=== PATIENT | female | born 1965 | race Hispanic/Latino ===

== ENCOUNTER 2021-11-19 21:41 | Emergency (ER) | payer BC ==
[~2021-11-19] VITALS: Ht 157.5 cm; Wt 95.3 kg
[2021-11-19] MEDS ORDERED: AZITHROMYCIN 250 MG TAB PO STA (21:57)
[2021-11-19] MEDS ORDERED: DEXAMETHASONE SOD PHOS 10 MG/1 ML VIAL IM STA (21:57)
[2021-11-19] MEDS ORDERED: ACETAMINOPHEN 325 MG TAB PO STA (21:58)
[2021-11-19] MEDS ORDERED: ACETAMINOPHEN 325 MG TAB ONE (22:16)
[2021-11-19] MEDS ORDERED: DEXAMETHASONE SOD PHOS 10 MG/1 ML VIAL ONE (22:21)
[2021-11-19] MEDS ORDERED: AZITHROMYCIN 250 MG TAB ONE (22:21)
[2021-11-19] MEDS ORDERED: VENTOLIN HFA18 GM INH (22:31)
[2021-11-19 22:45] VITALS: BP 113/68
== END 2021-11-19 22:43 | disposition home or self-care (01) ==
LOC: ER 22:02
DX: U07.1 COVID-19 (principal); J06.9 Acute upper respiratory infection, unspecified; R50.9 Fever, unspecified; R06.00 Dyspnea, unspecified
CPT/HCPCS: 71045; 99283; J1100

== ENCOUNTER 2021-11-21 10:42 | Inpatient (IN) | payer BC ==
[~2021-11-21] VITALS: Ht 157.5 cm; Wt 91.6 kg
[~2021-11-21 10:42] MED LIST: VENTOLIN HFA18 GM INH
[2021-11-21 11:02] LABS: BASOPHILS % 0.1 % (0.0-1.0); HEMATOCRIT 38.3 % (34.2-44.1); HEMOGLOBIN 12.2 g/dL (12.0-16.0); LYMPHOCYTES # (AUTO) 1.3 (1.0-3.2); LYMPHOCYTES % 11.8 % (18.0-39.1); MEAN CORPUSCULAR HGB CONC 31.9 g/dL (31-35); MEAN CORPUSCULAR VOLUME 87.8 fL (81-99); MONOCYTES # (AUTO) 0.6 (0.2-0.8); MONOCYTES % 5.4 % (4.4-11.3); NEUTROPHILS % 82.5 % (38.7-80.0); PLATELET COUNT 385 x10e3/uL (140-360); RED BLOOD COUNT 4.36 x10e6/uL (3.6-5.1)
[2021-11-21 11:13] LABS: INR 0.98; PROTHROMBIN TIME 13.8 seconds (11.9-14.5)
[2021-11-21 11:14] LABS: PARTIAL THROMBOPLASTIN TIME 24.9 seconds (23.8-35.5)
[2021-11-21 11:22] LABS: ALANINE AMINOTRANSFERASE 24 IU/L (0-55); ALBUMIN 3.3 g/dL (3.5-5.0); ALBUMIN/GLOBULIN RATIO 0.7 (0.8-2.0); ALKALINE PHOSPHATASE 51 IU/L (40-150); ANION GAP 15.8 mmol/L (8-16); BLOOD UREA NITROGEN 28 mg/dL (7-26); BUN/CREATININE RATIO 35 (6-25); CARBON DIOXIDE 22 mmol/L (22-29); CHLORIDE 105 mmol/L (98-107); CREATINE KINASE 58 IU/L (29-168); EST GLOMERULAR FILTRATION RATE 74 ML/MIN (60-); GLUCOSE 113 mg/dL (74-118); POTASSIUM 3.8 mmol/L (3.5-5.1); SODIUM 139 mmol/L (136-145)
[2021-11-21] MEDS ORDERED: ONDANSETRON HCL INJ 2MG/ML 2ML 2 MG/ML VIAL IV PRN (12:45)
[2021-11-21] MEDS ORDERED: ACETAMINOPHEN 325 MG TAB PO PRN (12:45)
[2021-11-21] MEDS: CEFTRIAXONE 1 GM in SODIUM CHLORIDE 0.9% 50ML 50 ML IV SCH (13:13)
[2021-11-21] MEDS ORDERED: ALBUTEROL SULFATE HFA 8GM INHALATION AEROSOL INH PRN (14:30)
[2021-11-21] MEDS ORDERED: ZOLPIDEM TARTRATE 5 MG TAB PO PRN (14:30)
[2021-11-21] MEDS ORDERED: REMDESIVIR 100MG 200 MG in SODIUM CHLORIDE 0.9% 100 ML IV ONE (17:00)
[2021-11-21] MEDS ORDERED: REMDESIVIR 100MG 100 MG IV ONE ×2 (17:10→17:11)
[2021-11-21] MEDS ORDERED: SODIUM CHLORIDE 0.9% 100 ML ONE (17:12)
[2021-11-21] MEDS: ENOXAPARIN SOD INJ 40 MG/0.4 ML SYR SC SCH (17:15)
[2021-11-21] MEDS: ASCORBIC ACID 500 MG TAB PO SCH (17:15)
[2021-11-21 20:00] VITALS: BP 97/58
[2021-11-21 20:23] LABS: CREATINE KINASE 34 IU/L (29-168)
[2021-11-21 21:00] VITALS: BP 97/58
[2021-11-21] MEDS ORDERED: SODIUM CHLORIDE 0.9% 250ML 250 ML ONE (22:11)
[2021-11-21 22:31] VITALS: BP 97/58
[2021-11-22] VITALS: BP 94/54
[2021-11-22] MEDS: CEFTRIAXONE 1 GM in SODIUM CHLORIDE 0.9% 50ML 50 ML IV SCH ×2 (00:21→11:55)
[2021-11-22 04:00] VITALS: BP 91/57
[2021-11-22 05:00] LABS: BASOPHILS % 0.2 % (0.0-1.0); EOSINOPHILS % 0.4 % (0.0-6.0); HEMATOCRIT 35.2 % (34.2-44.1); LYMPHOCYTES # (AUTO) 2.5 (1.0-3.2); LYMPHOCYTES % 26.8 % (18.0-39.1); MEAN CORPUSCULAR HEMOGLOBIN 28.1 pg (28-32); MEAN CORPUSCULAR HGB CONC 31.3 g/dL (31-35); MEAN CORPUSCULAR VOLUME 89.8 fL (81-99); MONOCYTES # (AUTO) 0.9 (0.2-0.8); MONOCYTES % 9.5 % (4.4-11.3); NEUTROPHILS # (AUTO) 5.8 (2.1-6.9); NEUTROPHILS % 62.9 % (38.7-80.0); PLATELET COUNT 367 x10e3/uL (140-360); RED BLOOD COUNT 3.92 x10e6/uL (3.6-5.1); RED CELL DISTRIBUTION WIDTH 15.3 % (11.7-14.4)
[2021-11-22 05:46] LABS: ALBUMIN 2.8 g/dL (3.5-5.0); ALBUMIN/GLOBULIN RATIO 0.7 (0.8-2.0); ANION GAP 15.2 mmol/L (8-16); CALCIUM 9.1 mg/dL (8.4-10.2); CHOL/HDL RATIO 3.2 (3.0-3.6); CREATININE, SERUM 0.84 mg/dL (0.57-1.11); POTASSIUM 4.2 mmol/L (3.5-5.1)
[2021-11-22 06:17] LABS: CREATINE KINASE 27 IU/L (29-168)
[2021-11-22 08:04] VITALS: BP 96/62
[2021-11-22] MEDS: DEXAMETHASONE SOD PHOS 10 MG/1 ML VIAL IV SCH (08:14)
[2021-11-22] MEDS: ZINC SULFATE 50 MG CAP PO SCH (08:15)
[2021-11-22] MEDS: ASCORBIC ACID 500 MG TAB PO SCH ×2 (08:15→16:09)
[2021-11-22] MEDS ORDERED: SODIUM CHLORIDE 0.9% 100 ML ONE (09:51)
[2021-11-22] MEDS: REMDESIVIR 100MG 100 MG in SODIUM CHLORIDE 0.9% 100 ML IV SCH (14:23)
[2021-11-22] MEDS: ENOXAPARIN SOD INJ 40 MG/0.4 ML SYR SC SCH (16:09)
[2021-11-22 20:00] VITALS: BP 99/60
[2021-11-22 21:00] VITALS: BP 99/60
[2021-11-23] VITALS (7 sets, daily range): BP systolic 106–116; BP diastolic 54–68
[2021-11-23] MEDS: CEFTRIAXONE 1 GM in SODIUM CHLORIDE 0.9% 50ML 50 ML IV SCH ×2 (00:41→12:53)
[2021-11-23 05:08] LABS: BASOPHILS % 0.1 % (0.0-1.0); EOSINOPHILS % 0.1 % (0.0-6.0); HEMATOCRIT 35.5 % (34.2-44.1); HEMOGLOBIN 11.3 g/dL (12.0-16.0); LYMPHOCYTES # (AUTO) 1.9 (1.0-3.2); LYMPHOCYTES % 22.6 % (18.0-39.1); MEAN CORPUSCULAR HEMOGLOBIN 28.2 pg (28-32); MEAN CORPUSCULAR HGB CONC 31.8 g/dL (31-35); MEAN CORPUSCULAR VOLUME 88.5 fL (81-99); MONOCYTES # (AUTO) 0.8 (0.2-0.8); MONOCYTES % 9.1 % (4.4-11.3); NEUTROPHILS # (AUTO) 5.6 (2.1-6.9); NEUTROPHILS % 67.7 % (38.7-80.0); PLATELET COUNT 408 x10e3/uL (140-360); RED BLOOD COUNT 4.01 x10e6/uL (3.6-5.1)
[2021-11-23 05:28] LABS: ALBUMIN 2.8 g/dL (3.5-5.0); ALBUMIN/GLOBULIN RATIO 0.7 (0.8-2.0); ANION GAP 15.8 mmol/L (8-16); CALCIUM 9.2 mg/dL (8.4-10.2); CREATININE, SERUM 0.76 mg/dL (0.57-1.11); POTASSIUM 3.8 mmol/L (3.5-5.1)
[2021-11-23] MEDS: ASCORBIC ACID 500 MG TAB PO SCH ×2 (09:20→17:12)
[2021-11-23] MEDS: ZINC SULFATE 50 MG CAP PO SCH (09:20)
[2021-11-23] MEDS: DEXAMETHASONE SOD PHOS 10 MG/1 ML VIAL IV SCH (09:21)
[2021-11-23] MEDS ORDERED: CEFTRIAXONE 1 GM VIAL ONE (12:32)
[2021-11-23] MEDS ORDERED: SODIUM CHLORIDE 0.9% 50ML 50 ML ONE (12:36)
[2021-11-23] MEDS ORDERED: LOSARTAN-HCTZ1 EAC1 PO (15:03)
[2021-11-23] MEDS ORDERED: PLAQUENIL200 MG PO (15:03)
[2021-11-23] MEDS ORDERED: CYMBALTA30 MG PO (15:03)
[2021-11-23] MEDS ORDERED: VERAPAMIL ER120 MG PO (15:03)
[2021-11-23] MEDS ORDERED: PREDNISONE10 MG PO (15:03)
[2021-11-23] MEDS ORDERED: POLYETHYLENE GLYCOL 3350 17 GM PACK PO PRN (15:15)
[2021-11-23] MEDS: BISACODYL 5 MG TAB EC PO SCH (15:15)
[2021-11-23] MEDS: REMDESIVIR 100MG 100 MG in SODIUM CHLORIDE 0.9% 100 ML IV SCH (17:10)
[2021-11-23] MEDS: DULOXETINE HCL 30 MG DELAYED RELEASE PO SCH (17:11)
[2021-11-23] MEDS: VERAPAMIL HCL 120 MG TABSR PO SCH (17:11)
[2021-11-23] MEDS: ENOXAPARIN SOD INJ 40 MG/0.4 ML SYR SC SCH (17:12)
[2021-11-24] VITALS (8 sets, daily range): BP systolic 97–117; BP diastolic 58–72
[2021-11-24] MEDS: CEFTRIAXONE 1 GM in SODIUM CHLORIDE 0.9% 50ML 50 ML IV SCH ×2 (01:29→11:15)
[2021-11-24 06:32] LABS: BASOPHILS % 0.1 % (0.0-1.0); EOSINOPHILS # (AUTO) 0.2 (0.0-0.4); EOSINOPHILS % 1.6 % (0.0-6.0); HEMATOCRIT 32.5 % (34.2-44.1); HEMOGLOBIN 10.5 g/dL (12.0-16.0); LYMPHOCYTES # (AUTO) 1.8 (1.0-3.2); MEAN CORPUSCULAR HEMOGLOBIN 27.9 pg (28-32); MEAN CORPUSCULAR HGB CONC 32.3 g/dL (31-35); MEAN CORPUSCULAR VOLUME 86.4 fL (81-99); MONOCYTES # (AUTO) 0.8 (0.2-0.8); MONOCYTES % 8.3 % (4.4-11.3); NEUTROPHILS # (AUTO) 6.7 (2.1-6.9); NEUTROPHILS % 70.4 % (38.7-80.0); PLATELET COUNT 462 x10e3/uL (140-360); RED BLOOD COUNT 3.76 x10e6/uL (3.6-5.1); RED CELL DISTRIBUTION WIDTH 14.9 % (11.7-14.4)
[2021-11-24 06:50] LABS: ALBUMIN 2.5 g/dL (3.5-5.0); ALBUMIN/GLOBULIN RATIO 0.7 (0.8-2.0); ANION GAP 13.1 mmol/L (8-16); CREATININE, SERUM 0.71 mg/dL (0.57-1.11); POTASSIUM 4.1 mmol/L (3.5-5.1)
[2021-11-24] MEDS: DEXAMETHASONE SOD PHOS 10 MG/1 ML VIAL IV SCH (08:45)
[2021-11-24] MEDS: VERAPAMIL HCL 120 MG TABSR PO SCH (08:46)
[2021-11-24] MEDS: BISACODYL 5 MG TAB EC PO SCH (08:46)
[2021-11-24] MEDS: DULOXETINE HCL 30 MG DELAYED RELEASE PO SCH (08:46)
[2021-11-24] MEDS: ZINC SULFATE 50 MG CAP PO SCH (08:46)
[2021-11-24] MEDS: ASCORBIC ACID 500 MG TAB PO SCH ×2 (08:46→16:19)
[2021-11-24] MEDS ORDERED: SODIUM CHLORIDE 0.9% 200 ML ONE (13:20)
[2021-11-24] MEDS: REMDESIVIR 100MG 100 MG in SODIUM CHLORIDE 0.9% 100 ML IV SCH (13:24)
[2021-11-24] MEDS ORDERED: REMDESIVIR 100MG 100 MG IV ONE (13:27)
[2021-11-24] MEDS: ENOXAPARIN SOD INJ 40 MG/0.4 ML SYR SC SCH (16:19)
[2021-11-25] VITALS (7 sets, daily range): BP systolic 92–115; BP diastolic 50–81
[2021-11-25 06:42] LABS: CHOL/HDL RATIO 2.8 (3.0-3.6); MAGNESIUM 2.1 MG/DL (1.3-2.1)
[2021-11-25] MEDS: DULOXETINE HCL 30 MG DELAYED RELEASE PO SCH (08:27)
[2021-11-25] MEDS: DEXAMETHASONE SOD PHOS 10 MG/1 ML VIAL IV SCH (08:27)
[2021-11-25] MEDS: BISACODYL 5 MG TAB EC PO SCH (08:27)
[2021-11-25] MEDS: VERAPAMIL HCL 120 MG TABSR PO SCH (08:27)
[2021-11-25] MEDS: ASCORBIC ACID 500 MG TAB PO SCH (08:27)
[2021-11-25] MEDS: ZINC SULFATE 50 MG CAP PO SCH (08:27)
[2021-11-25] MEDS ORDERED: PREDNISONE10 MG PO (12:41)
[2021-11-25] MEDS: REMDESIVIR 100MG 100 MG in SODIUM CHLORIDE 0.9% 100 ML IV SCH (15:16)
== END 2021-11-25 16:25 | disposition home or self-care (01) | DRG 177 ==
LOC: ER 10:49 → ERHOLD 13:11 → IMCU 18:25
PROVIDERS: ADMIT Internal Medicine; ATTEND Internal Medicine
PROC: 8E0ZXY6 Isolation (ICD-10-PCS; principal; 2021-11-21)
PROC: XW033E5 Introduction of Remdesivir Anti-infective into Peripheral Vein, Percutaneous Approach, New Technology Group 5 (ICD-10-PCS; 2021-11-21)
DX: U07.1 COVID-19 (principal); J12.82 Pneumonia due to coronavirus disease 2019; J96.00 Acute respiratory failure, unspecified whether with hypoxia or hypercapnia; M35.00 Sjogren syndrome, unspecified; I10 Essential (primary) hypertension; G47.00 Insomnia, unspecified; M32.9 Systemic lupus erythematosus, unspecified; F32.A Depression, unspecified; F41.9 Anxiety disorder, unspecified; M79.7 Fibromyalgia
CPT/HCPCS: 36415; 71045; 80053; 80061; 82550; 82553; 83036; 83735; 83880; 84484; 85025; 85610; 85730; 87040; 93005; 94799; 99284; J0456; J0696; J1100; J1650; J7050; U0002

== ENCOUNTER → 2021-12-18 | Outpatient (CLI) | payer BC ==
[~2021-12-18] MED LIST changes: +CYMBALTA30 MG PO; +LOSARTAN-HCTZ1 EAC1 PO; +PLAQUENIL200 MG PO; +PREDNISONE10 MG PO; +VERAPAMIL ER120 MG PO
== END ==
LOC: RAD 11:21
PROVIDERS: ATTEND Internal Medicine Critical Care Medicine
DX: J12.9 Viral pneumonia, unspecified (principal)
CPT/HCPCS: 71046